=== PATIENT | male | born 2005 | race Caucasian/White ===

== ENCOUNTER 2023-12-20 03:51 | Outpatient (CLI) | payer BC, SELFPAY | END 2023-12-20 03:52 | disposition home or self-care (01) | LOC: AMB 01-02 04:21 | PROVIDERS: PCP Family Medicine; Visit Provider Family Medicine | DX: S11.91XA Laceration without foreign body of unspecified part of neck, initial encounter (principal); X78.1XXA Intentional self-harm by knife, initial encounter; Y92.009 Unspecified place in unspecified non-institutional (private) residence as the place of occurrence of the external cause | CPT/HCPCS: A0425; A0427 ==